=== PATIENT | male | born 1955 | race Caucasian/White ===

== ENCOUNTER 2021-07-20 08:50 | Outpatient (REF) | payer MEDICARE, SELFPAY ==
[2021-07-20 10:43] LABS: Hematocrit 46.4 % (42-52); Hemoglobin 15.3 g/dl (14.0-18.0); Mean Corpuscular Hemoglobin 28.1 pg (27.0-33.0); Mean Corpuscular Volume 85.1 fL (80-98); Mean Platelet Volume 8.9 fL (9.4-12.4); Platelet Count 278 X10*3/uL (160-400); Red Blood Count 5.45 X10*6/uL (4.60-5.80); Red Cell Distribution Width 14.2 % (11.0-16.0)
[2021-07-20 10:56] LABS: Creatinine Urine 166.23 mg/dL; Microalbum/Creatinine Ratio Ur 10.8 ug/mg cr
[2021-07-20 11:05] LABS: Estimated Average Glucose 100 mg/dL; Hemoglobin A1c % 5.1 %
[2021-07-20 11:11] LABS: Alanine Aminotransferase 22 U/L (0-40); Albumin Level 4.3 g/dL (3.5-5.0); Alkaline Phosphatase 72 U/L (39-117); Anion Gap 13 (12-20); Aspartate Amino Transferase 25 U/L (5-37); Bilirubin Total 1.6 mg/dL (0.0-1.0); Blood Urea Nitrogen 12 mg/dL (9-16); Calcium 9.2 mg/dL (8.4-10.2); Carbon Dioxide 24 mmol/L (22-29); Chloride 103 mmol/L (96-108); Cholesterol 203 mg/dL; Estimated Glomerular Filt Rate > 60; Glucose Random 95 mg/dL (60-115); HDL Cholesterol 48 mg/dL; LDL Cholesterol Calculated 130 mg/dl; Potassium 4.6 mmol/L (3.3-5.1); Sodium 135 mmol/L (135-145); Total Protein 7.1 g/dL (6.5-8.0); Triglycerides 126 mg/dL
[2021-07-20 11:15] LABS: T4 Thyroxine 6.3 ug/dL (4.5-12.0)
[2021-07-22 03:16] LABS: Triiodothyronine T3 Total 119 ng/dL (76-181)
== END 2021-07-20 08:51 | disposition home or self-care (01) ==
LOC: HO.LAB 08:50
PROVIDERS: Absent Provider Student in an Organized Health Care Education/Training Program; PCP Student in an Organized Health Care Education/Training Program; Visit Provider Family Medicine
DX: E78.5 Hyperlipidemia, unspecified (principal); I10 Essential (primary) hypertension; R10.11 Right upper quadrant pain
CPT/HCPCS: 36415; 80053; 80061; 82043; 83036; 84436; 84443; 84480; 85027

== ENCOUNTER 2023-06-13 09:41 | Outpatient (REF) | payer MEDICARE, SELFPAY ==
[2023-06-13 14:42] LABS: Alanine Aminotransferase 17 U/L (0-40); Albumin Level 4.3 g/dL (3.5-5.0); Alkaline Phosphatase 70 U/L (39-117); Anion Gap 11 (12-20); Aspartate Amino Transferase 19 U/L (5-37); Bilirubin Direct 0.3 mg/dL (0.0-0.5); Bilirubin Total 0.8 mg/dL (0.0-1.0); Blood Urea Nitrogen 13 mg/dL (9-16); Calcium 9.7 mg/dL (8.4-10.2); Carbon Dioxide 25 mmol/L (22-29); Chloride 99 mmol/L (96-108); Cholesterol 179 mg/dL (<200); Estimated Glomerular Filt Rate > 60; Glucose Fasting 88 mg/dL (60-99); HDL Cholesterol 48 mg/dL (>40); LDL Cholesterol Calculated 102 mg/dL (<100); Potassium 4.3 mmol/L (3.3-5.1); Sodium 131 mmol/L (135-145); Total Protein 7.4 g/dL (6.5-8.0); Triglycerides 147 mg/dL (<150)
== END 2023-06-13 09:42 | disposition home or self-care (01) ==
LOC: HO.CHCLDS 09:41
PROVIDERS: Visit Provider Student in an Organized Health Care Education/Training Program
DX: I10 Essential (primary) hypertension (principal)
CPT/HCPCS: 36415; 80048; 80061; 80076

== ENCOUNTER 2024-06-30 10:59 | Outpatient (REF) | payer MEDICARE, SELFPAY ==
[2024-06-30 15:29] LABS: Alanine Aminotransferase 18 U/L (0-40); Albumin Level 4.2 g/dL (3.5-5.0); Alkaline Phosphatase 64 U/L (39-117); Anion Gap 12 (12-20); Aspartate Amino Transferase 18 U/L (5-37); Bilirubin Direct 0.3 mg/dL (0.0-0.5); Bilirubin Total 1.1 mg/dL (0.0-1.0); Blood Urea Nitrogen 13 mg/dL (9-16); Calcium 9.5 mg/dL (8.4-10.2); Carbon Dioxide 25 mmol/L (22-29); Chloride 100 mmol/L (96-108); Cholesterol 198 mg/dL (<200); Estimated Glomerular Filt Rate > 60; Glucose Random 85 mg/dL (60-115); HDL Cholesterol 52 mg/dL (>40); LDL Cholesterol Calculated 120 mg/dL (<100); Potassium 4.2 mmol/L (3.3-5.1); Sodium 133 mmol/L (135-145); Total Protein 6.9 g/dL (6.5-8.0); Triglycerides 133 mg/dL (<150)
== END 2024-06-30 11:00 | disposition home or self-care (01) ==
LOC: HO.CHCLDS 10:59
PROVIDERS: Visit Provider Student in an Organized Health Care Education/Training Program
DX: I10 Essential (primary) hypertension (principal); E78.5 Hyperlipidemia, unspecified
CPT/HCPCS: 36415; 80048; 80061; 80076

== ENCOUNTER 2025-01-19 09:06 | Outpatient (REF) | payer MEDICARE, SELFPAY ==
--- OUTSIDE RECORDS SUMMARY | 2025-01-19 10:01 | XMS_ITS | Clinical Summary ---
Author Organization [employer] [facility] Address [address] [facility] 7t [place] [address] Care Team Providers Care Director Of Managed Care Name Role Phone Maribell Bell MD Primary Care Provider [phone] Allergies Active Allergy Reactions Criticality Noted Date Comments Penicillins Hives Medications aspirin 81 MG chewable tablet Chew 1 tablet at bed time. 9 Active amLODIPine (Norvasc) 10 MG tablet TAKE 1 TABLET(10 MG) BY MOUTH IN THE MORNING 90 tablet 1 4 Active lisinopril 10 MG tabletIndications :Primary hypertension TAKE 1 TABLET BY MOUTH EVERY MORNING 90 tablet 1 5 Active gemfibrozil (Lopid) 600 MG tablet TAKE 1 TABLET BY MOUTH TWICE A DAY 180 tablet 1 5 Active Active Problems Problem Noted Date Diagnosed Date Alcohol abuse 06/11/2023 HTN (hypertension) 09/14/2022 Hyperlipidemia 04/23/2013 Encounters Date Type Department Care Team Description 01/18/2025 10:15 AM EDT Office Visit [facility] [address] [place] [address] Maribell Bell MD Primary hypertension (Primary Dx); Hyperlipidemia, unspecified hyperlipidemia type; Encounter for annual wellness visit; Alcohol abuse 01/18/2025 Travel 12/25/[address] [facility] ([facility]) Department [address] [address] Provider, Population Health Generic 12/16/2024 Telephone [facility] [address] [place] [address] Maribell Bell MD R/S APPT 11/06/2024 Telephone [facility] [address] [place] [address] Maribell Bell MD Transition Of Care (Tcm) 11/05/2024 Refill [facility] [address] [facility] [place] [address] Maribell Bell MD Primary hypertension 11/05/2024 Telephone [facility] [address] [facility] [place] [address] Maribell Bell MD Annual Exam from Last 3 Months Immunizations Name Administration Dates Next Due Influenza High-dose Quadriva lent Preservative Free 08/02/2022,07/19/2021 Influenza injectable quadriv alent IIV4 with preservative 08/03/2019,08/05/2018,08/03/2016,10/13 Influenza, High Dose Seasona l, Preservative Free 06/30/2024 Influenza, IIV3, injectable 08/27/2014 Influenza, Split (incl. darrell fied surface antigen) 10/31/2012 Pneumococcal Conjugate PCV 13 09/01/2019 Pneumococcal Polysaccharide PPSV23 02/21/2021 Tdap 10/13/2015 Social History Tobacco Use Types Packs/Day Years Used Date Smoking Tobacco: Some Days Cigarettes Passive Smoke Exposure: Never Smokeless Tobacco: Never Tobacco Cessation:Ready to Q uit: Not Asked; Counseling Given: Not Answered Alcohol Use Standard Drinks/Week Comments Yes 0 (1 standard drink = 0.6 oz pur e alcohol) Depression Answer Date Recorded Patient Health Questionnaire-9 Score 0 06/30/2024 Patient Health Questionnaire-9 Score 0 06/30/2024 Last PHQ-9: Questionnaire Data Not on file 0 06/30/2024 Housing Stability Answer Date Recorded What is your housing situation today? I have lexi vitale 06/26/[address] you li ve. Do you have problems with any of the following? None of the above 06/26/2024 Food Insecurity Answer Date Recorded Within the past 12 months, y ou worried that your food would run out before you got money to buy more: Never True 06/26/2024 Within the past 12 months,th e food you bought just didn't last and you didn't have enough money to get more: Never True Transportation Answer Date Recorded In the past 12 months, has l ack of transportation kept you from medical appts, meetings, work or from getting things needed for daily living? No 06/26/2024 Utilities Answer Date Recorded In the past 12 months, has t he electric, gas, oil or water company threatened to shut off services in your home? No 06/26/2024 Depression Answer Date Recorded Patient Health Questionnaire-2 Score 0 06/30/2024 Internet Access Answer Date Recorded Internet Access Q1 No 06/30/2024 Internet Access Q2 I do not want or need it 06/14 Sex and Gender Information Value Date Recorded Sex Assigned at Male 08/13/2022 10:20 AM EDT Legal Sex Male 10:20 AM EDT Gender Identity Male 08/13/2022 10:20 AM EDT Sexual Orientation Straight 08/13/2022 10 :20 AM EDT Last Filed Vital Signs Vital Sign Reading Time Taken Comments Blood Pressure 131/73 01/18/2025 10:21 AM EDT Pulse 70 01/18/2025 10:21 AM EDT Temperature 36.2 ??C (97.1 ??F) 01/18/2025 10:21 AM E DT Respiratory Rate 18 01/18/2025 10:21 AM EDT Oxygen Saturation 97% 01/18/2025 10:21 AM EDT Inhaled Oxygen Concentration - - Weight 66.2 kg (146 lb) 01/18/2025 10:21 AM EDT Height 167.6 cm (5' 6 ) 01/18/2025 10:21 AM EDT Body Mass Index 23.57 01/18/2025 10:21 AM EDT Plan of Treatment Health Maintenance Due Date Last Done Comments CT Colonography 1954 Colonoscopy 1954 FIT 1954 FOBT 1954 Sigmoidoscopy 1954 Alcohol/Substance Use Screening 1966 Hepatitis C Screening 1972 Zoster Vaccines (1 of 2) 2004 Depression Screening 06/30/2025 06/30/2024, 06/30/20 24 SDOH Screening 06/30/2025 06/30/2024 DTaP/Tdap/Td Vaccines (2 - Td or Tdap) 10/13/2025 10/13/2015 COVID-19 Vaccine ( season) 2026 08/27/2022, 02/08/2021, 01/11/2021 Postponed from 06/14/2024 (Patient Refused) Tobacco Screening 01/18/2026 01/18/2025 Colorectal Cancer Screening 07/06/2027 FIT DNA/Cologuard 07/06/2027 07/06/2024 Lipid Panel 06/30/2029 06/30/2024, 0810/2022, 08/03/2022 RSV Patients and Patients Aged 60 years or older (1 - 1-dose 75+ series) 2029 Pneumococcal Vaccine: 50+ Years Completed 02/21/2021, 09/01/2019 Influenza Vaccine Completed 06/30/2024, , 07/19/2021, Additional history exists HIB Vaccines Aged Out No longer eligi ble based on patient's age to complete this topic HPV Vaccines Aged Out No longer eligi ble based on patient's age to complete this topic Hepatitis A Vaccines Aged Out No long er eligible based on patient's age to complete this topic Hepatitis B Vaccines Aged Out No long er eligible based on patient's age to complete this topic IPV Vaccines Aged Out No longer eligi ble based on patient's age to complete this topic Meningococcal Vaccine Aged Out No carmella elizabeth eligible based on patient's age to complete this topic RSV under 20 months Aged Out No longe r eligible based on patient's age to complete this topic Rotavirus Vaccines Aged Out No longer eligible based on patient's age to complete this topic Procedures Procedure Name Priority Date/Time Associated Diagnosis Comments LAB COLOGUARD?? COLON CANCER SCREEN Routine 07/06/2024 6:30 AM EDT Encounter for screening for malignant neoplasm of colon LIPID PANEL, STANDARD Routine 06/30/2024 11:52 AM EDT Primary hypertension Hyperlipidemia, unspecified hyperlipidemia type from Last 3 Months or Most Recently Relevant to Health Maintenance Results * (ABNORMAL) Cologuard?? colon cancer screening (07/06/2024 6:30 AM EDT) Cologuard Result Positive( A) Negative 07/09/2024 1:56 PM EDT [facility] (CLIA #:[id number]) Comment: POSITIVE TEST RESULT. A positive Cologuard result should be followed with a colonoscopy or visual examination of the colon. The normal value (reference range) for this assay is negative. TEST DESCRIPTION: Composite algorithmic analysis of stool DNA-biomarkers with hemoglobin immunoassay. ?? Quantitative values of individual biomarkers are not reportable and are not associated with individual biomarker result reference ranges. Cologuard is intended for colorectal cancer screening of adults of either sex, 45 years or older, who are at average-risk for colorectal cancer (CRC). Cologuard has been approved for use by the U.S. FDA. The performance of Cologuard was established in a cross sectional study of average-risk adults aged 50-84. Cologuard performance in patients ages 45 to 49 years was estimated by sub-group analysis of near-age groups. Colonoscopies performed for a positive result may find as the most clinically significant lesion: colorectal cancer [4.0%], advanced adenoma (including sessile serrated polyps greater than or equal to 1cm diameter) [20%] or non- advanced adenoma [31%]; or no colorectal neoplasia [45%]. These estimates are derived from a prospective cross-sectional screening study of 10,000 individuals at average risk for colorectal cancer who were screened with both Cologuard and colonoscopy. (Smooth Perez al, N Engl J Med 2014;370(14):0174-6108.) Cologuard may produce a false negative or false positive result (no colorectal cancer or precancerous polyp present at colonoscopy follow up). A negative Cologuard test result does not guarantee the absence of CRC or advanced adenoma (pre-cancer). The current Cologuard screening interval is every 3 years. ([place] [employer] Society and U.S. Multi-Society Task Force). Cologuard performance data in a 10,000 patient pivotal study using colonoscopy as the reference method can be accessed at the following location: [email or web address].Mieple/results. Additional description of the Cologuard test process, warnings and precautions can be found at www.[employer].com. Stool specimen (specimen) 07/06/2024 6:30 AM EDT 07/07/2024 9:25 AM EDT Maribell Bell MD LAB MOLECULAR DIAGNOSTICS ORDERA BLES Final Result Performing Organization Address City/[facility]/ZIP Co de Phone Number [facility] (CLIA #:[id number]) [address] [place] [address], * (ABNORMAL) Lipid Panel, Standard (06/30/2024 11:52 AM EDT) Triglycerides 133 <150 mg/dL [facility] Comment:Desirable Triglyceri de: less than 150 mg/dLBorderline High Triglyceride 150-199 mg/dLHigh Triglyceride: 200-499 mg/dLVery High Triglyceride: greater than or equal to 5OO mg/dL Cholesterol 198 <200 mg/dL [facility] Comment:Desirable Cholestero l: less than 200 mg/dLBorderline High Cholesterol: 200-239 mg/dLHigh Cholesterol: greater than 239 mg/dL LDL Cholesterol Calculated 120(H) <100 mg/dL [facility] Comment:Desirable LDL: less than 100 mg/dLNear Optimal/Above Optimal LDL: 110- 129 mg/dLBorderline High LDL: 130-159 mg/dLHigh LDL: 160-189 mg/dLVery High LDL: greater than or equal to 190 mg/dL HDL Cholesterol 52 >40 mg/dL [facility] Comment:Desirable HDL: great er than 40 mg/dL Note: This HDL assay may give artificially low results in patients with liver disease. Blood Venous blood specimen / Unknown 06/30/2024 11:52 AM EDT 06/30/2024 2:54 PM EDT Maribell Bell MD LAB BLOOD ORDERABLES Final Resul t Performing Organization Address City/[facility]/ZIP Co de Phone Number [facility] [address] [place] [address] [phone] from Last 3 Months or Most Recently Relevant to Health Maintenance Insurance [place], [place] [facility] [employer] [facility] MEDICARE * Guarantor: Tolu Marie Account Type Relation to Patient Date of Phone Billing Address Personal/Family Self [place], [place] * Guarantor: Tolu Marie Account Type Relation to Patient Date of Phone Billing Address Personal/Family Self [place], [place] Care Teams Director Of Managed Care Relationship Specialty Start Date End Date Maribell Bell MD [address] [place] [phone] PCP - General Family Medicine 09/26/12
--- OUTSIDE RECORDS SUMMARY | 2025-01-19 10:01 | XMS_ITS | Encounter Summary ---
Author Organization [employer] Address [address] [place] [address] Care Team Providers Care Training Consultant Name Role Phone Maribell Bell MD Primary Care Provider Encounter Details Date Type Department Care Team (Latest Contact Info) Description 01/18/2025 Travel Social History Tobacco Use Types Packs/Day Years Used Date Smoking Tobacco: Some Days Cigarettes Passive Smoke Exposure: Never Smokeless Tobacco: Never Alcohol Use Standard Drinks/Week Comments Yes 0 [...] Orientation Straight 08/13/2022 10 :20 AM EDT documented as of this encounter Plan of Treatment Not on file documented as of this encounter Visit Diagnoses Not on filedocumented in this encounter Additional Health Concerns Assessment Noted Time PHQ-9 Depression Total Score: 0 06/30/20 24 10:31 AM EDT documented as of this encounter Care Teams Training Consultant Relationship Specialty Start Date End Date Mairbell Bell MD [address] [place] [phone] PCP - General Family Medicine 09/26/12 documented as of this encounter
--- OUTSIDE RECORDS SUMMARY | 2025-01-19 10:01 | XMS_ITS | Encounter Summary ---
Author Organization [employer] Address [address] [facility] 7t [place] [address] Care Team Providers Care Knowledge Management Consultant Name Role Phone Maribell Bell MD Primary Care Provider [phone] Reason for Visit * Reason Comments Adult care Encounter Details Date Type Department Care Team (Latest Contact Info) Description 01/18/2025 10:15 AM EDT Office Visit [facility] [address] [place], [place] [phone] Maribell Bell MD [address] [place], [place] [phone] Primary hypertension (Primary Dx); Hyperlipidemia, unspecified hyperlipidemia type; Encounter for annual wellness visit; Alcohol abuse Social History Tobacco Use Types Packs/Day Years [...] AM EDT documented as of this encounter Last Filed Vital Signs Vital Sign Reading [...] Mass Index 23.57 01/18/2025 10:21 AM EDT documented in this encounter Progress Notes * Maribell Bell MD - 01/18/2025 10:15 AM EDT Subjective Patient ID: Tolu Marie is a 69 y.o. male who presents for Adult care. Hypertension This is a chronic problem. The current episode started more than 1 year ago. The problem is unchanged. The problem is controlled. Pertinent negatives include no anxiety, blurred vision, chest pain, headaches, malaise/fatigue, neck pain, orthopnea, palpitations, peripheral edema, PND, shortness of breath or sweats. Past treatments include JOSÉ inhibitors and calcium channel blockers. The current treatment provides significant improvement. There are no compliance problems. Review of Systems Constitutional: Negative. Negative for malaise/fatigue. Eyes: Negative for blurred vision. Respiratory: Negative. Negative for shortness of breath. Cardiovascular: Negative. Negative for chest pain, palpitations, orthopnea and PND. Gastrointestinal: Negative. Genitourinary: Negative. Musculoskeletal: Negative for neck pain. Neurological: Negative for headaches. Objective Physical Exam Constitutional: Appearance: Normal appearance. HENT: Head: Normocephalic and atraumatic. Right Ear: Tympanic membrane normal. Left Ear: Tympanic membrane normal. Mouth/Throat: Mouth: Mucous membranes are moist. Eyes: Pupils: Pupils are equal, round, and reactive to light. Cardiovascular: Rate and Rhythm: Normal rate and regular rhythm. Pulmonary: Effort: Pulmonary effort is normal. Breath sounds: Normal breath sounds. Abdominal: General: Abdomen is flat. Palpations: Abdomen is soft. Musculoskeletal: General: Normal range of motion. Cervical back: Normal range of motion. Lumbar back: No spasms or tenderness. Skin: General: Skin is warm. Neurological: Mental Status: He is alert. Assessment/Plan Diagnoses and all orders for this visit: Primary hypertension Comments: Well controlle d No changes in meds Maintain a low-sodium diet (less than 2 grams per day). Maintain a regular cardiovascular exercise program. Advised to maintain a low-fat, low-cholesterol diet. Counseled regarding importance of weight loss. Counseled re: potential co-morbidities including cardiovascular disease. Orders: - Basic Metabolic Panel; Future - Lipid Panel, Standard; Future - Hepatic Function Panel; Future Hyperlipidemia, unspecified hyperlipidemia type Advised to maintain a low-fat, low-cholesterol diet. Counseled regarding importance of weight loss. Alcohol abuse Strongly advised to quit drinking Encounter for annual wellness visit - PSA, Total With Reflex to PSA, Free; Future documented in this encounter Plan of Treatment Scheduled Orders Name Type Priority Associated Diagnoses Orde r Schedule Basic Metabolic Panel Lab Routine Primary hypertension Expected: 01/18/2025 (Approximate), Expires: 01/18/2026 Lipid Panel, Standard Lab Routine Primary hypertension Expected: 01/18/2025 (Approximate), Expires: 01/18/2026 Hepatic Function Panel Lab Routine Primary hypertension Expected: 01/18/2025 (Approximate), Expires: 01/18/2026 PSA, Total With Reflex to PSA, Free Lab Routine Encounter for annual wellness visit Expected: 01/18/2025 (Approximate), Expires: 01/18/2026 documented as of this encounter Visit Diagnoses Diagnosis Primary hypertension- Primary Unspecified essential hypertension Hyperlipidemia, unspecified hyperlipidemia type Encounter for annual wellness visit Alcohol abuse Nondependent alcohol abuse, unspecified drinking behavior documented in this encounter Additional Health Concerns Assessment Noted Time PHQ-9 Depression Total Score: 0 06/30/20 24 10:31 AM EDT documented as of this encounter Care Teams Knowledge Management Consultant Relationship Specialty Start Date End Date Maribell Bell MD [address] [place] [phone] PCP - General Family Medicine 09/26/12 documented as of this encounter
--- OUTSIDE RECORDS SUMMARY | 2025-01-19 10:01 | XMS_ITS | Clinical Summary ---
Author Organization [facility] Address [address] [place] [address] Care Team Providers Care Striper Machine Name Role Phone Unavailable Primary Care Provider Unavailabl e Social History Tobacco Use Types Packs/Day Years Used Date Smoking Tobacco: Never Assessed Sex and Gender Information Value Date Recorded Sex Assigned at Not on file Legal Sex Male 7:24 PM EST Gender Identity Not on file Sexual Orientation Not on file Plan of Treatment Health Maintenance Due Date Last Done Comments DTaP,Tdap,and Td Vaccines (1 - Tdap) 1973 Pneumococcal Vaccine: 50+ Ye ars (1 of 1 - PCV) 2004 Zoster Vaccines (1 of 2) 2004 COVID-19 Vaccine ( - 2023-2 5 season) 2024 Influenza Vaccine (Season Ended) 2025 RSV Immunization Adult Patie nts (1 - 1-dose 75+ series) 2029 HIB Vaccines Aged Out No longer eligi [...] on patient's age to complete this topic MMR Vaccines Aged Out No longer eligi ble based on patient's age to complete this topic Meningococcal ACWY Vaccine Aged Out N o longer eligible based on patient's age to complete this topic Meningococcal B Vaccine Aged Out No l onger eligible based on patient's age to complete this topic RSV Immunization Patients Un sarah 20 months Aged Out No longer eligible b ased on patient's age to complete this topic Varicella Vaccines Aged Out No longer eligible based on patient's age to complete this topic
--- OUTSIDE RECORDS SUMMARY | 2025-01-19 10:01 | XMS_ITS | Encounter Summary ---
Author Organization [employer] Address [address] [place] [address] Care Team Providers Care Staff Design Engineer Name Role Phone Maribell Bell MD Primary Care Provider [phone] Encounter Details Date Type Department Care Team (Late st Contact Info) Description 09/14/2022 Orders Only [facility] [address] [place] [address] Maribell Bell MD [address] [place], [place] [phone] Primary hypertension (Primary Dx) Social History Tobacco Use Types Packs/Day Years [...] on file documented as of this encounter Procedures Procedure Name Priority Date/Time Associated Diagnosis Comments BASIC METABOLIC PANEL, FASTING Routine 06/13/2023 9:43 AM EDT Primary hypertension documented in this encounter Results * (ABNORMAL) Basic Metabolic Panel, Fasting (06/13/2023 9:43 AM EDT) Sodium 131(L) 135 - 145 mmol/L [facility] Potassium 4.3 3.3 - 5.1 mmol/L [facility] Chloride 99 96 - 108 mmol/L [facility] Carbon Dioxide 25 22 - 29 mmol/L [facility] Anion Gap 11(L) 12 - 20 [facility] Urea Nitrogen (BUN) 13 9 - 16 mg/dL [facility] Creatinine, Serum 0.77 0.5 - 1.4 mg/dL [facility] Estimated Glomerular Filt Rate >60 [facility] Comment:NOTE: For -Am erican individuals, multiply the result by 1.210.Chronic Kidney Disease: Estimated GFR < 60 mL/min/1.83r4Ailhpw Kidney Disease: Estimated GFR < 15 mL/min/1.73m2 Glucose Fasting 88 60 - 99 mg/dL [facility] Calcium 9.7 8.4 - 10.2 mg/dL [facility] 06/13/2023 9:43 AM EDT 06/13/2023 2:16 PM EDT Maribell Bell MD LAB BLOOD ORDERABLES Final Resul t [facility] [address] [place] [phone] [phone] documented in this encounter Visit Diagnoses Diagnosis Primary hypertension- Primary Unspecified essential hypertension documented in this encounter Care Teams Staff Design Engineer Relationship Specialty Start Date End Date Maribell Bell MD [address] [place] [id number] PCP - General Family Medicine 09/26/12 documented as of this encounter
--- OUTSIDE RECORDS SUMMARY | 2025-01-19 10:01 | XMS_ITS | Encounter Summary ---
Author Organization [employer] Address [address] [place] [address] Care Team Providers Care Accounting Tutor Name Role Phone Maribell Bell MD Primary Care Provider [phone] Reason for Visit * Reason Onset Date Comments Lab Orders 08/10/2024 Referral 08/10/2024 Encounter Details Date Type Department Care Team (Late st Contact Info) Description 08/10/2024 Telephone [facility] [address] [place] [address] Maribell Bell MD [address] [place] [address] Lab Orders; Referral Social History Tobacco Use Types Packs/Day Years [...] AM EDT documented as of this encounter Miscellaneous Notes * Telephone Encounter - Spenser Weir - 08/10/2024 8:45 AM EDT Tc from pt requesting to have labs done. Stated has not gotten labs in a while. Pt is also requesting for Gastro referral to be changed to [facility] Please contact pt at [phone]. documented in this encounter Plan of Treatment Not on file documented as of this encounter Visit Diagnoses Not on filedocumented in this encounter Additional Health Concerns Assessment Noted Time PHQ-9 Depression Total Score: 0 06/30/20 24 10:31 AM EDT documented as of this encounter Care Teams Accounting Tutor Relationship Specialty Start Date End Date Maribell Bell MD [address] [place] [phone] PCP - General Family Medicine 09/26/12 documented as of this encounter
--- OUTSIDE RECORDS SUMMARY | 2025-01-19 10:01 | XMS_ITS | Encounter Summary ---
Author Organization [employer] Address [address] [place] [address] Care Team Providers Care Parliamentary Librarian Name Role Phone Maribell Bell MD Primary Care Provider [phone] Reason for Visit * Reason Onset Date Comments Lab Orders 05/01/2024 Encounter Details Date Type Department Care Team (Late st Contact Info) Description 05/01/2024 Telephone [facility] [address] [place] [address] Maribell Bell MD [address] [place], [place] [phone] Lab Orders Social History Tobacco Use Types Packs/Day Years Used Date Smoking Tobacco: Never Passive Smoke Exposure: Never Smokeless Tobacco: Never Sex and Gender Information Value Date Recorded Sex Assigned at Male 08/13/2022 10:20 AM EDT Legal Sex Male 10:20 AM EDT Gender Identity Male 08/13/2022 10:20 AM EDT Sexual Orientation Straight 08/13/2022 10 :20 AM EDT documented as of this encounter Miscellaneous Notes * Telephone Encounter - Ju Shepard RN - 05/01/2024 11:24 AM EDT Pt has not been seen in almost a year. Please schedule f/u. * Telephone Encounter - Qasim Dos Santos - 05/01/2024 8:48 AM EDT Tc from pt requesting yearly routine blood work . documented in this encounter Plan of Treatment Not on file documented as of this encounter Visit Diagnoses Not on filedocumented in this encounter Care Teams Parliamentary Librarian Relationship Specialty Start Date End Date Maribell Bell MD [address] [place] [address] PCP - General Family Medicine 09/26/12 documented as of this encounter
[2025-01-19 14:37] LABS: Alanine Aminotransferase 17 U/L (0-40); Albumin Level 4.4 g/dL (3.5-5.0); Anion Gap 13 (12-20); Aspartate Amino Transferase 28 U/L (5-37); Bilirubin Direct 0.2 mg/dL (0.0-0.5); Bilirubin Total 0.7 mg/dL (0.0-1.0); Blood Urea Nitrogen 14 mg/dL (9-16); Calcium 9.4 mg/dL (8.4-10.2); Carbon Dioxide 24 mmol/L (22-29); Chloride 101 mmol/L (96-108); Cholesterol 172 mg/dL (<200); Estimated Glomerular Filt Rate > 60; Glucose Random 90 mg/dL (60-115); HDL Cholesterol 51 mg/dL (>40); LDL Cholesterol Calculated 104 mg/dL (<100); Potassium 4.2 mmol/L (3.3-5.1); Sodium 134 mmol/L (135-145); Total Protein 7.2 g/dL (6.5-8.0); Triglycerides 88 mg/dL (<150)
[2025-01-19 14:47] LABS: Alkaline Phosphatase 66 U/L (39-117); PSA,Total (Free>4and<10) 2.34 ng/mL (0.00-4.00)
== END 2025-01-19 09:07 | disposition home or self-care (01) ==
LOC: HO.CHCLDS 09:06
PROVIDERS: Visit Provider Student in an Organized Health Care Education/Training Program
DX: Z00.00 Encounter for general adult medical examination without abnormal findings (principal); I10 Essential (primary) hypertension; Z12.5 Encounter for screening for malignant neoplasm of prostate
CPT/HCPCS: 36415; 80048; 80061; 80076; 84153

== ENCOUNTER 2025-09-08 10:00 | Outpatient (REF) | payer MEDICARE, SELFPAY ==
--- OUTSIDE RECORDS SUMMARY | 2025-09-08 09:15 | XMS_ITS | Encounter Summary ---
Author Organization [employer] Address [address] [facility] 7 [place] [address] Care Team Providers Care Tank Builder Supervisor Name Role Phone Linda Meneses MD Primary Care Provider [phone] Reason for Visit * Reason Comments Transfer Encounter Details Date Type Department Care Team (Latest Contact Info) Description 09/08/2025 9:15 AM EST Office Visit [facility] PEDS [address], [place] [phone] Linda Meneses MD [address] [place] [address] Primary hypertension (Primary Dx); Hyperlipidemia, unspecified hyperlipidemia type; Alcohol abuse; Hyponatremia; Diarrhea, unspecified type; Encounter for immunization Social History Tobacco Use Types Packs/Day Years Used Date Smoking Tobacco: Some Days Cigarettes Passive Smoke Exposure: Never Smokeless Tobacco: Never Alcohol Use Standard Drinks/Week Comments Yes 0 (1 standard drink = 0.6 oz pur e alcohol) Alcohol Answer Date Recorded How often do you have a drink containing alcohol ? 1 09/08/2025 How many drinks containing a lcohol do you have on a typical day when you are drinking? 1 09/08/2025 How often do you have six or more drinks on one occasion? 0 09/08/2025 Depression Answer Date Recorded Patient Health Questionnaire-9 Score 1 09/08/2025 Patient Health Questionnaire-9 Score 1 09/08/2025 Last PHQ-9: Questionnaire Data Not on file 1 11/08/2024 Housing Stability Answer Date Recorded What is your housing situation today? I have lexi vitale 09/08/[address] you li ve. Do you have problems with any of the following? I am not sure;None of the above 09/08/2025 Food Insecurity Answer Date Recorded Within the past 12 months, y ou worried that your food would run out before you got money to buy more: Never True 09/08/2025 Within the past 12 months,th e food you bought just didn't last and you didn't have enough money to get more: Never True Transportation Answer Date Recorded In the past 12 months, has l ack of transportation kept you from medical appts, meetings, work or from getting things needed for daily living? No 09/08/2025 Utilities Answer Date Recorded In the past 12 months, has t he electric, gas, oil or water company threatened to shut off services in your home? No 09/08/2025 Depression Answer Date Recorded Patient Health Questionnaire-2 Score 0 09/08/2025 Internet Access Answer Date Recorded Internet Access Q1 Yes 09/08/2025 Internet Access Q2 Not on file 09/08/2025 Sex and Gender Information Value Date Recorded Sex Assigned at Male 08/13/2022 10:20 AM EDT Legal Sex Male 10:20 AM EDT Gender Identity Male 08/13/2022 10:20 AM EDT Sexual Orientation Straight 08/13/2022 10 :20 AM EDT documented as of this encounter Last Filed Vital Signs Vital Sign Reading Time Taken Comments Blood Pressure 168/97 09/08/2025 9:38 AM EST Pulse 94 09/08/2025 9:38 AM EST Temperature - - Respiratory Rate 20 09/08/2025 9:38 AM EST Oxygen Saturation 94% 09/08/2025 9:38 AM EST Inhaled Oxygen Concentration - - Weight 64 kg (141 lb) 09/08/2025 9:38 AM EST Height 167.6 cm (5' 6 ) 09/08/2025 9:38 AM EST Body Mass Index 22.76 09/08/2025 9:38 AM EST documented in this encounter Functional Status * Over the past 2 weeks, how often have you been bothered by any of the following problems? Question Answer Date of Assessment Author Patient Health Questionnaire-2 Score 0 08/15 10:02 AM EST Princess Velasquez MA * Little interest or pleasure in doing things Answer Date of Assessment Author Not at all 09/08/2025 10:02 AM Tony Garcia MA * Feeling down, depressed, or hopeless Answer Date of Assessment Author Not at all 09/08/2025 10:02 AM Tony Garcia MA * Trouble falling or staying asleep, or sleeping too much Answer Date of Assessment Author Several days 09/08/2025 10:02 AM Tony Garcia MA * Feeling tired or having little energy Answer Date of Assessment Author Not at all 09/08/2025 10:02 AM Tony Garcia MA * Poor appetite or overeating Answer Date of Assessment Author Not at all 09/08/2025 10:02 AM Tony Garcia MA * Feeling bad about yourself - or that you are a failure or have let yourself or your family down Answer Date of Assessment Author Not at all 09/08/2025 10:02 AM Tony Garcia MA * Trouble concentrating on things, such as reading the newspaper or watching television Answer Date of Assessment Author Not at all 09/08/2025 10:02 AM Tony Garcia MA * Moving or speaking so slowly that other people could have noticed? Or the opposite - being so fidgety or restless that you have been moving around a lot more than usual. Answer Date of Assessment Author Not at all 09/08/2025 10:02 AM Tony Garcia MA * Thoughts that you would be better off or hurting yourself in some way Answer Date of Assessment Author Not at all 09/08/2025 10:02 AM Tony Garcia MA * Patient Health Questionnaire-9 Score Answer Date of Assessment Author 1 09/08/2025 10:02 AM Tony Garcia MA * How difficult have these problems made it for you to do your work, take care of things at home, or get along with other people? Answer Date of Assessment Author Not difficult at all 09/08/2025 10:02 AM Princess Jimenez MA documented as of this encounter Progress Notes * Linda Meneses MD - 09/08/2025 9:15 AM EST SUBJECTIVE Tolu Marie is a 70 y.o. male who presents for Transfer. HPI Tolu Marie, 70-year-old male - History of high cholesterol, previously on medication, currently not taking medication - History of high blood pressure, currently taking lisinopril 10 mg daily, occasional aspirin at night - Reports diarrhea for 2 days, with multiple bowel movements per day - Denies abdominal pain - Started smoking a few days ago - Drinks alcohol, 3-4 drinks per day - Reports blood pressure generally good at home - History of low sodium Problem List[1] Allergies[2] Medications Ordered Prior to Encounter[3] Review of Systems Constitutional: Negative for appetite change, chills, diaphoresis and fatigue. HENT: Negative for facial swelling and hearing loss. Cardiovascular: Negative for palpitations and leg swelling. Gastrointestinal: Positive for diarrhea. Negative for anal bleeding, blood in stool and constipation. Musculoskeletal: Negative for gait problem, joint swelling and myalgias. Skin: Negative for rash and wound. Neurological: Negative for seizures, light-headedness and numbness. OBJECTIVE Vitals: 09/08/25 0938 BP: (!) 168/97 BP Location: Left arm Patient Position: Sitting BP Cuff Size: Adult Pulse: 94 Resp: 20 SpO2: 94% Weight: 141 lb (64 kg) Height: 5' 6 (1.676 m) Physical Exam Constitutional: General: He is not in acute distress. Appearance: Normal appearance. He is not ill-appearing, toxic-appearing or diaphoretic. Cardiovascular: Rate and Rhythm: Normal rate. Pulmonary: Effort: Pulmonary effort is normal. Abdominal: Palpations: Abdomen is soft. Neurological: General: No focal deficit present. Mental Status: He is alert. Psychiatric: Mood and Affect: Mood normal. Assessment/Plan Assessment/Plan Diagnoses and all orders for this visit: Primary hypertension Hyperlipidemia, unspecified hyperlipidemia type - Lipid Panel, Standard; Future Alcohol abuse - Hepatitis C Antibody with Reflex to HCV, RNA, Quantitative, Real-Time PCR; Future Hyponatremia - Basic Metabolic Panel; Future Diarrhea, unspecified type Encounter for immunization - FLU VACCINE TRIVALENT HIGH DOSE [id number] (Fluzone) 65 yrs + Primary hypertension: - Primary hypertension, currently managed with Licibopril 10 mg daily. Blood pressure reported as generally well controlled at home. - Continue Licibopril 10 mg daily. Monitor blood pressure at home, record readings, and bring records to next visit. Nurse visit scheduled in 1 month for follow-up. Ordered blood work to assess current status. Hyperlipidemia, unspecified hyperlipidemia type: - Hyperlipidemia, not currently on medication. - Ordered blood test to check cholesterol levels. Alcohol abuse: - Alcohol use reported as 3-4 drinks per day. No request for assistance to quit at this time. Hyponatremia: - Hyponatremia previously noted, requires monitoring. - Ordered blood test to check electrolytes, including sodium. Advised to hydrate with fluids containing electrolytes (e.g., oral rehydration solutions such as Pedialyte or electrolyte packets) and avoid excessive water intake without electrolytes. Diarrhea, unspecified type: - Acute diarrhea, likely self-limited, no abdominal pain. - Advised BRAT diet (bananas, rice, applesauce, toast). Advised hydration with fluids containing electrolytes. If diarrhea persists for more than 3 weeks, plan for stool workup. Immunization status: - Due for influenza and tetanus vaccinations. - Administer influenza and tetanus vaccines today. Ordered screening for hepatitis C during blood work. This note was drafted using Ambient (AI) technology. The patient/patient's guardian has been informed and has consented to the use of this technology: Yes [1] Patient Active Problem List Diagnosis HTN (hypertension) Hyperlipidemia Alcohol abuse [2] Allergies Allergen Reactions Penicillins Hives [3] Current Outpatient Medications on File Prior to Visit Medication Sig Dispense Refill amLODIPine (Norvasc) 10 MG tablet TAKE 1 TABLET(10 MG) BY MOUTH IN THE MORNING 90 tablet 1 aspirin 81 MG chewable tablet Chew 1 tablet at bed time. gemfibrozil (Lopid) 600 MG tablet TAKE 1 TABLET BY MOUTH TWICE A DAY 180 tablet 1 lisinopril 10 MG tablet TAKE 1 TABLET BY MOUTH EVERY DAY IN THE MORNING 90 tablet 1 No current facility-administered medications on file prior to visit. documented in this encounter Plan of Treatment Upcoming Encounters Date Type Department Care Team (Late st Contact Info) Description 10/05/2025 1:00 PM EST Clinical Support [facility] MED & PEDS [address] [place] [address] Scheduled Orders Name Type Priority Associated Diagnoses Orde r Schedule Basic Metabolic Panel Lab Routine Hyponatremia Expected: 09/08/2025 (Approximate), Expires: 09/08/2026 Lipid Panel, Standard Lab Routine Hyperlipidemia, unspecified hyperlipidemia type Expected: 09/08/2025 (Approximate), Expires: 09/08/2026 Hepatitis C Antibody with Reflex to HCV, RNA, Quantitative, Real-Time PCR Lab Routine Alcohol abuse Expected: 09/08/2025, Expires: 09/08/2026 documented as of this encounter Visit Diagnoses Diagnosis Primary hypertension- Primary Unspecified essential hypertension Hyperlipidemia, unspecified hyperlipidemia type Alcohol abuse Nondependent alcohol abuse, unspecified drinking behavior Hyponatremia Hyposmolality and/or hyponatremia Diarrhea, unspecified type Encounter for immunization documented in this encounter Additional Health Concerns Assessment Noted Time PHQ-9 Depression Total Score: 1 09/08/20 25 10:02 AM EST documented as of this encounter Care Teams Tank Builder Supervisor Relationship Specialty Start Date End Date Linda Meneses MD [address] [place] [id number] PCP - General Internal Medicine 08/24/25 documented as of this encounter
--- OUTSIDE RECORDS SUMMARY | 2025-09-08 11:39 | XMS_ITS | Encounter Summary ---
Author Organization [employer] Address [address] [facility] 7t [place] [address] Care Team Providers Care Ship Self Defense System Mk1 Operator Name Role Phone Maribell Bell MD Primary Care Provider [phone] Linda Meneses MD Primary Care Provider [phone] Encounter Details Date Type Department Care Team (Late Contact Info) Description 09/14/2022 Orders Only [facility] [address] [place], [place] [phone] Maribell Bell MD [address], [place] [phone] Primary hypertension (Primary Dx) Social History Tobacco Use Types Packs/Day Years Used Date Smoking Tobacco: Never Assessed Sex and Gender Information Value Date Recorded Sex Assigned at Male 08/13/2022 10:20 AM EDT Legal Sex Male 10:20 AM EDT Gender Identity Male 08/13/2022 10:20 AM EDT Sexual Orientation Straight 08/13/2022 10 :20 AM EDT documented as of this encounter Plan of Treatment Upcoming Encounters Date Type Department Care Team (Late Contact Info) Description 10/05/2025 1:00 PM EST Clinical Support [facility] [address] [place], [place] [phone] documented as of this encounter Procedures Procedure Name Priority Date/Time Associated Diagnosis Comments BASIC METABOLIC PANEL, FASTING Routine 06/13/2023 9:43 AM EDT Primary hypertension documented in this encounter Results * (ABNORMAL) Basic Metabolic Panel, Fasting (06/13/2023 9:43 AM EDT) Sodium 131(L) 135 - 145 mmol/L [facility] Potassium 4.3 3.3 - 5.1 mmol/L [facility] Chloride 99 96 - 108 mmol/L [facility] Carbon Dioxide 25 22 - 29 mmol/L [facility] Anion Gap 11(L) 12 - 20 [facility] Urea Nitrogen (BUN) 13 9 - 16 mg/dL [facility] Creatinine, Serum 0.77 0.5 - 1.4 mg/dL [facility] Estimated Glomerular Filt Rate >60 [facility] Comment:NOTE: For -Am erican individuals, multiply the result by 1.210.Chronic Kidney Disease: Estimated GFR < 60 mL/min/1.51u0Vhdrbo Kidney Disease: Estimated GFR < 15 mL/min/1.73m2 Glucose Fasting 88 60 - 99 mg/dL [facility] Calcium 9.7 8.4 - 10.2 mg/dL [facility] 06/13/2023 9:43 AM EDT 06/13/2023 2:16 PM EDT us Maribell Bell MD LAB BLOOD ORDERABLES Final Resul t [facility] [address] [place] [phone] documented in this encounter Visit Diagnoses Diagnosis Primary hypertension- Primary Unspecified essential hypertension documented in this encounter Care Teams Ship Self Defense System Mk1 Operator Relationship Specialty Start Date End Date Maribell Bell MD [address] [place] [address] PCP - General Family Medicine 09/26/12 08/10/25 Linda Meneses MD [address] [place] [address] PCP - General Internal Medicine 08/24/25 documented as of this encounter
--- OUTSIDE RECORDS SUMMARY | 2025-09-08 11:39 | XMS_ITS | Encounter Summary ---
Author Organization [employer] Address [address] [facility] [address] 7[address] [place] [address] Care Team Providers Care Photoengraving Printer Name Role Phone Maribell Bell MD Primary Care Provider [phone] Linda Meneses MD Primary Care Provider [phone] Reason for Visit * Reason Onset Date Comments Lab Orders 08/10/2024 Referral 08/10/2024 Encounter Details Date Type Department Care Team (Late st Contact Info) Description 08/10/2024 Telephone [facility] [address] [place] [address] Maribell Bell MD [address] [place], [place] [phone] Lab Orders; Referral Social History Tobacco Use [...] is your housing situation today? I have lexideneen vitale 06/26/[address] you [...] for Gastro referral to be changed to [facility] instead of [facility]. Please contact pt at [phone]. documented in this encounter Plan of Treatment Upcoming Encounters Date Type Department Care Team (Late st Contact Info) Description 10/05/2025 1:00 PM EST Clinical Support [facility] MED & PEDS [address] [place] [address] documented as of this encounter Visit Diagnoses Not on filedocumented in this encounter Additional Health Concerns Assessment Noted Time PHQ-9 Depression Total Score: 0 06/30/20 24 10:31 AM EDT documented as of this encounter Care Teams Photoengraving Printer Relationship Specialty Start Date End Date Maribell Bell MD [address] [place] [phone] PCP - General Family Medicine 09/26/12 08/10/25 Linda Meneses MD [address] [place] [id number] PCP - General Internal Medicine 08/24/25 documented as of this encounter
--- OUTSIDE RECORDS SUMMARY | 2025-09-08 11:39 | XMS_ITS | Clinical Summary ---
Author Organization [facility] Address [address] [place] [address] Care Team Providers Care Oxidized Finish Plater Name Role Phone Unavailable Primary Care Provider [...] 2004 Zoster Vaccines (1 of 2) 2004 Depression Screening 10/14/2024 COVID-19 Vaccine (1 - 2024-2 6 season) 2025 Influenza Vaccine (#1) 2025 RSV Immunization Adult Patie nts (1 [...]
--- OUTSIDE RECORDS SUMMARY | 2025-09-08 11:39 | XMS_ITS | Clinical Summary ---
Author Organization [employer] Address [address] [facility] 7t [place] [address] Care Team Providers Care Sales Team Member Name Role Phone Linda Meneses MD Primary Care Provider [phone] Allergies Active Allergy Reactions Criticality Noted Date Comments Penicillins Hives Medications aspirin 81 MG chewable tablet Chew 1 tablet at bed time. 9 Active gemfibrozil (Lopid) 600 MG tablet TAKE 1 TABLET BY MOUTH TWICE A DAY 180 tablet 1 5 Active amLODIPine (Norvasc) 10 MG tablet TAKE 1 TABLET(10 MG) BY MOUTH IN THE MORNING 90 tablet 1 5 Active lisinopril 10 MG tabletIndications :Primary hypertension TAKE 1 TABLET BY MOUTH EVERY DAY IN THE MORNING 90 tablet 1 5 Active Active Problems Problem Noted Date Diagnosed Date Alcohol abuse 06/11/2023 HTN (hypertension) 09/14/2022 Hyperlipidemia 04/23/2013 Encounters Date Type Department Care Team Description 09/08/2025 9:15 AM EST Office Visit [facility] [address] [place] [address] Linda Meneses MD Primary hypertension (Primary Dx); Hyperlipidemia, unspecified hyperlipidemia type; Alcohol abuse; Hyponatremia; Diarrhea, unspecified type; Encounter for immunization 09/08/2025 Travel 08/31/2025 Patient Outreach [facility] [address] [place], [place] [phone] Linda Meneses MD Pre-visit Planning (Pre visit planning LVM ) from Last 3 Months Immunizations Immunization Administration Dates Next Due Influenza High-dose Quadriva lent Preservative Free 08/02/2022,07/19/2021 Influenza injectable quadriv alent IIV4 with preservative 08/03/2019,08/05/2018,08/03/2016,10/13 Influenza, High Dose Seasona l, Preservative Free 09/08/2025,06/30/2024 Influenza, IIV3, injectable 08/27/2014 Influenza, Split (incl. darrell fied surface antigen) 10/31/2012 Pneumococcal Conjugate PCV 13 09/01/2019 Pneumococcal Polysaccharide PPSV23 02/21/2021 Tdap 10/13/2015 Family History Medical History Relation Name Comments Dementia Father Relation Name Status Comments Father Social History Tobacco Use Types Packs/Day Years [...] Pulse 94 09/08/2025 9:38 AM EST Temperature 36.2 C (97.1 F) 01/18/2025 10:21 AM EDT Respiratory Rate 20 09/08/2025 9:38 AM EST Oxygen Saturation 94% 09/08/2025 9:38 AM EST Inhaled Oxygen Concentration - - Weight 64 kg (141 lb) 09/08/2025 9:38 AM EST Height 167.6 cm (5' 6 ) 09/08/2025 9:38 AM EST Body Mass Index 22.76 09/08/2025 9:38 AM EST Plan of Treatment Upcoming Encounters Date Type Department Care Team (Late st Contact Info) Description 10/05/2025 1:00 PM EST Clinical Support [facility] & [facility] [address] [place] [address] Health Maintenance Due Date Last Done Comments CT Colonography 1954 Colonoscopy 1954 FIT 1954 Sigmoidoscopy 1954 Hepatitis C Screening 1972 Zoster Vaccines (1 of 2) 2004 COVID-19 Vaccine (4 - season) 2025 08/27/2022, 02/08/2021, 01/11/2021 FOBT 07/06/2025 07/06/2024 DTaP/Tdap/Td Vaccines (2 - Td or Tdap) 10/13/2025 10/13/2015 Alcohol/Substance Use Screening 09/08/2026 09/08/2025 Depression Screening 09/08/2026 09/08/2025, 09/08/20 SDOH Screening 09/08/2026 09/08/2025 Tobacco Screening 09/08/2026 09/08/2025 Colorectal Cancer Screening 07/06/2027 FIT DNA/Cologuard 07/06/2027 07/06/2024 RSV Patients and Patients Aged 60 years or older (1 - 1-dose 75+ series) 2029 Lipid Panel 01/19/2030 01/19/2025, 06/14, 06/13/2023, Additional history exists Pneumococcal Vaccine: 50+ Years Completed 02/21/2021, 09/01/2019 Influenza Vaccine Completed 09/08/2025, , 08/02/2022, Additional history exists HIB Vaccines Aged Out [...] Procedure Name Priority Date/Time Associated Diagnosis Comments LIPID PANEL, STANDARD Routine 01/19/2025 9:08 AM EDT Primary hypertension LAB COLOGUARD COLON CANCER SCREEN Routine 07/06/2024 6:30 AM EDT Encounter for screening for malignant neoplasm of colon from Last 3 Months or Most Recently Relevant to Health Maintenance Results * (ABNORMAL) Lipid Panel, Standard (01/19/2025 9:08 AM EDT) Triglycerides 88 <150 mg/dL [facility] Comment:Desirable Triglyceri de: less than 150 mg/dLBorderline High Triglyceride 150-199 mg/dLHigh Triglyceride: 200-499 mg/dLVery High Triglyceride: greater than or equal to 5OO mg/dL Cholesterol 172 <200 mg/dL [facility] Comment:Desirable Cholestero l: less than 200 mg/dLBorderline High Cholesterol: 200-239 mg/dLHigh Cholesterol: greater than 239 mg/dL LDL Cholesterol Calculated 104(H) <100 mg/dL [facility] Comment:Desirable LDL: less than 100 mg/dLNear Optimal/Above Optimal LDL: 110- 129 mg/dLBorderline High LDL: 130-159 mg/dLHigh LDL: 160-189 mg/dLVery High LDL: greater than or equal to 190 mg/dL HDL Cholesterol 51 >40 mg/dL [facility] Comment:Desirable HDL: great er than 40 mg/dL Note: This HDL assay may give artificially low results in patients with liver disease. Blood Venous blood specimen / Unknown 01/19/2025 9:08 AM EDT 01/19/2025 2:06 PM EDT us Maribell Bell MD LAB BLOOD ORDERABLES Final Resul t [facility] [address] [place] [phone] * (ABNORMAL) Cologuard?? colon cancer screening (07/06/2024 6:30 AM EDT) Cologuard Result Positive( A) Negative 07/09/2024 1:56 PM EDT [facility] (CLIA #:[id number]) Comment: POSITIVE TEST RESULT. A positive Cologuard result should be followed with a colonoscopy or visual examination of the colon. The normal value (reference range) for this assay is negative. TEST DESCRIPTION: Composite algorithmic analysis of stool DNA-biomarkers with hemoglobin immunoassay. Quantitative values of individual biomarkers are not [...] (Smooth Perez al, N Engl J Med 2014;370(14):8671-5849.) Cologuard may produce a false negative or false positive result (no colorectal cancer or precancerous polyp present at colonoscopy follow up). A negative Cologuard test result does not guarantee the absence of CRC or advanced adenoma (pre-cancer). The current Cologuard screening interval is every 3 years. ([place] [employer] and U.S. Multi-Society Task Force). Cologuard performance data in a 10,000 patient pivotal study using colonoscopy as the reference method can be accessed at the following location: [email or web address].Vidavee/results. Additional description of the Cologuard test process, warnings and precautions can be found at www.Viadeord.com. Stool specimen (specimen) 07/06/2024 6:30 AM EDT 07/07/2024 9:25 AM EDT Maribell Bell MD LAB MOLECULAR DIAGNOSTICS ORDERA BLES Final Result [facility] (CLIA #:[id number]) [address] [place] [address], from Last 3 Months or Most Recently Relevant to Health Maintenance Insurance [place] MEDICARE [facility] MEDEX MEDICARE SUPPLEMENT * Guarantor: Tolu Marie Account Type Relation to Patient Date of Phone Billing Address Personal/Family Self [place], [place] * Guarantor: Tolu Marie Account Type Relation to Patient Date of Phone Billing Address Personal/Family Self [place], [place] * Guarantor: Tolu Marie Account Type Relation to Patient Date of Phone Billing Address Personal/Family Self [place] Care Teams Sales Team Member Relationship Specialty Start Date End Date Linda Meneses MD [address] [place] [phone] PCP - General Internal Medicine 08/24/25
--- OUTSIDE RECORDS SUMMARY | 2025-09-08 11:39 | XMS_ITS | Encounter Summary ---
Author Organization [employer] Address [address] [facility] [address] [facility] [address] [place] [address] Care Team Providers Care Clinical Research Tech Name Role Phone Maribell Bell MD Primary Care Provider [phone] Linda Meneses MD Primary Care Provider [phone] Reason for Visit * Reason Onset Date Comments Lab Orders 05/01/2024 Encounter Details Date Type Department Care Team (Late st Contact Info) Description 05/01/2024 Telephone [facility] [address] [place] [address] Maribell Bell MD [address] [place] [address] Lab Orders Social History Tobacco Use Types [...] 1:00 PM EST Clinical Support [facility] [address] [place] [address] documented as of this encounter Visit Diagnoses Not on filedocumented in this encounter Care Teams Clinical Research Tech Relationship Specialty Start Date End Date Maribell Bell MD [address] [place] [id number] PCP - General Family Medicine 09/26/12 08/10/25 Linda Meneses MD [address] [place] [address] PCP - General Internal Medicine 08/24/25 documented as of this encounter
--- OUTSIDE RECORDS SUMMARY | 2025-09-08 11:39 | XMS_ITS | Encounter Summary ---
Author Organization [employer] Address [address] [place] [address] Care Team Providers Care Brim Shaper Name Role Phone Linda Meneses MD Primary Care Provider [phone] Encounter Details Date Type Department Care Team (Latest Contact Info) Description 09/08/2025 Travel Social History Tobacco Use Types Packs/Day [...] AM EDT documented as of this encounter Functional Status * Over the past 2 weeks, how often have you been bothered by any of the following problems? Question Answer Date of Assessment Author Patient Health Questionnaire-2 Score 0 08/15 10:02 AM Princess Garcia MA * Little interest or pleasure in [...] Jimenez [place] documented as of this encounter Plan of Treatment Upcoming Encounters Date Type Department Care Team (Late st Contact Info) Description 10/05/2025 1:00 PM EST Clinical Support [facility] [address] [place] [address] documented as of this encounter Visit Diagnoses Not on filedocumented in this encounter Additional Health Concerns Assessment Noted Time PHQ-9 Depression Total Score: 1 09/08/20 10:02 AM EST documented as of this encounter Care Teams Brim Shaper Relationship Specialty Start Date End Date Linda Meneses MD [address] [place] [address] PCP - General Internal Medicine 08/24/25 documented as of this encounter
[2025-09-08 15:36] LABS: Anion Gap 11 (12-20); Blood Urea Nitrogen 18 mg/dL (9-16); Calcium 9.7 mg/dL (8.4-10.2); Carbon Dioxide 25 mmol/L (22-29); Chloride 101 mmol/L (96-108); Cholesterol 193 mg/dL (<200); Estimated Glomerular Filt Rate > 60; HDL Cholesterol 50 mg/dL (>40); Potassium 4.3 mmol/L (3.3-5.1); Sodium 133 mmol/L (135-145); Triglycerides 161 mg/dL (<150)
[2025-09-09 05:10] LABS: ~HepC Num1 0.09 S/CO (0.00-0.79); ~Hepatitis C Antibody Nonreactive (Nonreactive)
== END 2025-09-08 10:01 | disposition home or self-care (01) ==
LOC: HO.CHCLDS 10:00
PROVIDERS: Visit Provider Internal Medicine
DX: E87.1 Hypo-osmolality and hyponatremia (principal); F10.10 Alcohol abuse, uncomplicated; E78.5 Hyperlipidemia, unspecified; Z11.59 Encounter for screening for other viral diseases
CPT/HCPCS: 36415; 80048; 80061; 86803